=== PATIENT | male | born 1940 | race Caucasian/White ===

== ENCOUNTER 2019-02-06 23:18 | Inpatient (IN) | payer OTHER, BC ==
[~2019-02-06] VITALS: Ht 182.9 cm; Wt 93.2 kg
[2019-02-06 23:55] LABS: BASOPHIL % 0.3 % (0-2); PLATELET COUNT 229 x10^3mcL (130-400); RED CELL DISTRIBUTION WIDTH 13.5 % (11.5-14.5)
--- NOTE | 2019-02-07 | NUR ---
PATIENT WAS BROUGHT IN BY EMS WITH REPORT OF SLURRED SPEECH, UNABLE TO VOID , CONFUSION PER FAMILY. PATIENT WAS SEEN BY MD. BLOOD WAS DRAWN BY LAB.ATTEMPT TO DO BLADDER SCAN, BATTERY .
[2019-02-07 00:28] LABS: CALCIUM 9.6 mg/dL (8.5-10.1); CARBON DIOXIDE 25.2 mmol/L (21-32); CHLORIDE SERUM 102 mmol/L (98-107); CREATININE SERUM 1.2 mg/dL (0.7-1.3); GLUCOSE SERUM 163 mg/dL (74-106); POTASSIUM SERUM 4.3 mmol/L (3.5-5.1); SODIUM SERUM 138 mmol/L (136-145)
--- NOTE | 2019-02-07 00:30 | NUR ---
ON FIGUEROA INSERTEION. PATIENT LOWER ABDOMEN IS DISTENDED AND HARD.
[2019-02-07 00:33] LABS: ALBUMIN 3.9 g/dL (3.4-5.0); ALKALINE PHOSPHATASE 86 U/L (46-116); ALT/SGPT 53 U/L (16-63); AST/SGOT 40 U/L (15-37); TOTAL PROTEIN, SERUM 7.3 g/dL (6.4-8.2)
--- NOTE | 2019-02-07 00:42 | NUR ---
UNSUCCESSFUL ATTEMPTS X2 AT FIGUEROA CATH INSERTION WITH REGULAR FIGUEROA AND COUDE' FIGUEROA. WILL NOTIFY DR. BERNAL.
--- NOTE | 2019-02-07 00:43 | NUR ---
PT PROVIDED WITH URINAL IN CASE PT NEEDS TO URINATE.
--- NOTE | 2019-02-07 03:00 | NUR ---
NEUROLOGY MD SPOKE TO THE PATIENT ON THE TELECOM.
--- NOTE | 2019-02-07 03:30 | NUR ---
PATIENT HAS A INSULIN PUMP, WHICH HE MANAGE, THEY EXPRESS THE PUMP IS NOT WORKING. FAMILY MEMBER IS ON THE PHONE TO GET HELP.
--- NOTE | 2019-02-07 04:00 | NUR ---
PATIENT MEDICATED WITH PLAVIX. ATTEMPT TO INSERT 20 ANGIO CATH FOR THE CTA WAS UNSUCCESSFUL.
--- NOTE | 2019-02-07 04:17 | NUR ---
MOBILE SECURITY SPECIALIST AT THE BEDSIDE ATTEMPTING IV LOCK.
--- NOTE | 2019-02-07 04:46 | NUR ---
FAMILY EXPRESS CONSERN, PATIENT'S INSULIN PUMP NOT WORKING SINCE HE GOT HERE.BLOOD SUGAR CHECK PER FAMILY REQUEST, LISANDRA IS 112MG/DL
--- NOTE | 2019-02-07 04:49 | NUR ---
PATIENT WENT TO HAVE CTA DONE.
--- NOTE | 2019-02-07 05:11 | NUR ---
PATIENT RETURN FROM CT , CT/ANGIO IS DONE.
--- NOTE | 2019-02-07 05:46 | NUR ---
PATIEN IS SLEEPING, NO DISTRESS.
--- NOTE | 2019-02-07 06:49 | NUR ---
PATIENT WAS GIVEN PO, MD WANTS TO MAKE SURE HE HAS NO DIFFICULTY SWALLOWING. PATIENT WAS GIVEN WATED, HE IS SWALLOWING OK. PATIENT WAS GIVE PO MEDICATION EARLIER. NO DIFFICULTY NOTED WHEN SWALLOWING.
--- NOTE | 2019-02-07 07:06 | NUR ---
PATIENT IS RESTING, REPORT ENDORSED TO ROSA.
--- NOTE | 2019-02-07 07:06 | NUR ---
RECEIVED REPORT FROM CHIARA BROWNE.
--- NOTE | 2019-02-07 07:11 | NUR ---
PT SLEEPING ON ED GURNEY, RESPS E/U, NAD NOTED, ON FULL CM, EASILY ARROUSED, DENIES PAIN AT THIS TIME, SLOW SPEECH NOTED. CALL LIGHT WITHIN REACH, FAMILY AT BEDSIDE.
--- NOTE | 2019-02-07 07:29 | NUR ---
PT'S SON DANO, STS HE WOULD LIKE TO GO HOME "AND GET SOME REST", LEFT PERSONAL CELL FOR CALL BACK, .
--- NOTE | 2019-02-07 08:18 | NUR ---
REPORT GIVEN TO CHIARA OTTO TO ASSUME CARE OF PT.
[2019-02-07 08:28] LABS: PHOSPHOROUS 5.2 mg/dL (2.5-4.9)
--- NOTE | 2019-02-07 08:30 | NUR ---
RECEIVED PT FROM ED. ARRIVED VIA GUERNEY. PT AMBULATED TO BED, GAIT SLOW AND UNSTEADY. FALL PRECAUTIONS IN PLACE. RESPIRATIONS EQUAL AND UNLABORED ON RA. DENIES SOB AT THIS TIME. A/OX4. SLOW TO ANSWER. PT DENIES [place] OR DIZZINESS. PLACED TELE# 37 ON PT. PT SB WITH HR 49. PT DENIES CHEST PAIN/PRESSURE. PT DENIES ANY PAIN AT THIS TIME. PT STATES BEFORE ARRIVING TO ED HE WAS HAVING TROUBLE URINATING. FIGUEROA CATHETER IN PLACE DRAINING SEAN YELLOW URINE. PT STATES HIS STOMACH FEELS FIRM BUT DENIES ANY ABDOMINAL PAIN. WILL CONTINUE TO MONITOR. CALL LIGHT IN REACH. BED IN LOWEST POSITION.
--- NOTE | 2019-02-07 08:32 | NUR ---
CALLED DANO'S PERSONAL CELL, PT'S , FRANCO, ANSWERED INFORMED PT WAS ADMITTED VERBALIZED UNDERSTANDING. STS SHE WILL INFORM DANO.
[2019-02-07 08:33] LABS: CHOLESTEROL/HDL RATIO 2.2
[2019-02-07 08:35] LABS: T3 TOTAL 0.82 ng/mL
[2019-02-07 08:47] LABS: UA SPECIFIC GRAVITY <=1.005 (1.005-1.035); microscopic required? YES; urine erythrocyte 3+ (NEGATIVE)
[2019-02-07 08:59] LABS: FREE T4 1.12 ng/dL (0.76-1.46); FREE THYROXINE INDEX 2.4 ug/dL (1.4-4.5); T4(THYROXINE) 6.3 ug/dL (4.7-13.3)
--- NOTE | 2019-02-07 09:28 | NUR ---
SPOKE WITH PT DAUGHTER, PT DOCTOR WOULD LIKE TO SPEAK WITH RESIDENT WORKING ON PT CASE. WILL INFORM DR. CHOI.
--- NOTE | 2019-02-07 09:29 | NUR ---
PT SITTING UP IN BED. NO ACUTE RESP DISTRESS NOTED ON RA. DENIES SOB AT THIS TIME. IV SALINE LOCKED TO LFA. NO REDNESS OR SWELLING NOTED. PT DENIES ANY PAIN AT THIS TIME. PT REFUSED ATORVASTATIN. PT STATES THE MEDICATION MAKES HIS BODY HURT AND HE STOPPED TAKING IT YEARS AGO. WILL CONTINUE TO MONITOR. CALL LIGHT IN REACH. BED IN LOWEST POSITION.
[2019-02-07 10:44] VITALS: BP 127/46
--- NOTE | 2019-02-07 12:03 | NUR ---
PT SITTING UP IN BED. FAMILY AT BEDSIDE. PT IV CATHETER WAS REMOVED. CATHETER INTACT. NO REDNESS OR SWELLING NOTED. PT DENIES ANY PAIN AT THIS TIME. FIGUEROA CATHETER IN PLACE DRAINING SEAN YELLOW URINE. WILL CONTINUE TO MONITOR. CALL LIGHT IN REACH. BED IN LOWEST POSITION.
[2019-02-07 13:04] VITALS: BP 119/42
--- NOTE | 2019-02-07 13:59 | NUR ---
CHIEF SCIENTIFIC OFFICER AT BEDSIDE FOR ECHO
--- NOTE | 2019-02-07 15:11 | NUR ---
PT SITTING UP IN BED. NO ACUTE RESP DISTRESS NOTED ON RA. PT DENIES ANY PAIN AT THIS TIME. SON AT BEDSIDE. IV TO LAC FLUSHED WELL. NO REDNESS OR SWELLING NOTED. IV FLUIDS INFUSING ORDERED. SON PROVIDED LIST OF PT HOME MEDICATIONS WILL UPDATE MED REC. WILL CONTINUE TO MONITOR. CALL LIGHT IN REACH. BED IN LOWEST POSITION.
[2019-02-07] MEDS ORDERED: NIASPAN1000 MG PO (15:13)
[2019-02-07] MEDS ORDERED: PROBENECID500 MG PO (15:14)
[2019-02-07] MEDS ORDERED: PRAVACHOL20 MG PO (15:14)
[2019-02-07] MEDS ORDERED: COZAAR100 MG PO (15:14)
[2019-02-07] MEDS ORDERED: JARDIANCE10 MG PO (15:16)
[2019-02-07] MEDS ORDERED: HUMULIN R500 UNIT/1 MC (15:16)
[2019-02-07] MEDS ORDERED: ASPIRIN CHILDRE81 MG PO (15:18)
[2019-02-07] MEDS ORDERED: CENTRUM SILVER1 EAC2 PO (15:18)
[2019-02-07] MEDS ORDERED: LEADER MAGNESIU1 TAB PO (15:19)
[2019-02-07] MEDS ORDERED: VITAMIN C PUR1000 M1 PO (15:19)
--- NOTE | 2019-02-07 15:46 | NUR ---
CALLED TO (RESIDENT) AND MADE HIM AWARE OF 'S ORDER COVERAGE ON SLIDING SCALE AND PT IS CURRENTLY USING HIS INSULIN PUMP WHAT WAS ORDERED BY THAT IT'S OKAY FOR PT TO CONTINUE HIS INSULIN PUMP. SAYS, HE WILL ORDER TO DISCONTINUE THE SLIDING SCALE SINCE PT IS ALREADY USING HIS INSULIN PUMP ORDERED. CLARITA GUADARRAMA ASSIGNED TO THIS PT MADE AWARE OF ABOVE.
--- NOTE | 2019-02-07 16:18 | NUR ---
ASSISTED PT TO BATHROOM. PT GAIT IS SLOW SHUFFLING. ASKED PT IF HE WOULD FEEL MORE COMFORTABLE USING BEDSIDE COMMODE. PT STATES I WILL TRY IT.
[2019-02-07 16:19] VITALS: BP 110/42
--- NOTE | 2019-02-07 17:40 | NUR ---
PT SITTING UP IN BED. NO ACUTE RESP DISTRESS NOTED ON RA. PT DENIES ANY PAIN AT THIS TIME. BLOOD SUGAR CHECKED WAS 45, RECHECKED WAS 48. PT PROVIDED ORANGE JUICE WITH SUGAR AND PUDDING. STARTED D10 BOLUS PER PROTOCOL. IV PATENT AND INFUSING. NO REDNESS OR SWELLING NOTED. FIGUEROA CARE PROVIDED. WILL REASSESS BLOOD SUGAR. CALL LIGHT IN REACH. BED IN LOWEST POSITION.
--- NOTE | 2019-02-07 17:59 | NUR ---
PT BLOOD SUGAR WAS 151. SPOKE WITH DR. CHOI MADE AWARE.
--- NOTE | 2019-02-07 18:38 | NUR ---
PT SITTING UP AT BEDSIDE. NO ACUTE RESP DISTRESS NOTED ON RA. PT DENIES ANY PAIN AT THIS TIME. IV D10 PATENT AND INFUSING. TELE#37. FIGUEROA CATHETER IN PLACE DRAINAGE YELLOW URINE. WILL ENDORSE TO FUNCTIONAL ANALYST RN. CALL LIGHT IN REACH. BED IN LOWEST POSITION.
--- NOTE | 2019-02-07 19:08 | NUR ---
RECEIVED REPORT FROM CLARITA GUADARRAMA. ASSUMING ALL CARE
--- NOTE | 2019-02-07 19:45 | NUR ---
RECEIVED PT LAYING IN BED. PT IS A/OX4. SPEECH IS SLOW. GCS=15. DENIES ANY P[place]/DIZZINESS. PERRLA NOTED BILAT, 3 MM. HAND LEAD REFINERY SUPERVISOR STRONG EQUAL BILAT. EENT FREE OF DISCHARGE. ORAL MUCOSA PINK AND MOIST. NO JVD NOTED. BREATHING IS E/U ON RA. DENIES ANY RESP DISTRESS. LUNGS SOUND CLEAR BILAT. SYMMETRICAL CHEST EXPANSION NOTED. PT ON TELE#37 READING NSR. S1/S2 HEART SOUNDS AUSCULTATED. CHEST WALL EQUAL AND SYMMETRICAL. DENIES ANY CP. HR 70. PALPABLE PULSES X4 EXTREMITIES. SKIN IS WARM AND DRY. + 1 PITTING EDEMA NOTED TO BLE. SKIN IS WARM AND DRY. LAC IV REMAINS SALINE LOCKED. GENERALIZED WEAKNESS. PT REQUIRES ASSISTANCE TO AMBULATE. PT ABLE TO REPOSIION SELF INDEPENDENTLY. PT ON CCHO DIET. DENIES ANY N/V. ABD IS ROUND/NONTENDER TO PALPATION. BOWEL SOUNDS ACTIVE X4 QUADRANTS. FIGUEROA IS INTACT/SECURED, DRAINING VIA GRAVITY WITH YELLOW COLORED URINE. NO SCROTAL EDEMA NOTED. SKIN IS INTACT. PT IS CALM AND COOPERATIVE. BED IN LOW POSITION. CALL LIGHT IN REACH. WILL CONT TO MONITOR
[2019-02-07 20:34] VITALS: BP 119/45
--- NOTE | 2019-02-07 23:17 | NUR ---
PT IS SLEEPING, EASILY AROUSABLE. RISE AND FALL OF CHEST NOTED. BREATHING IS E/U ON RA. NO S/S OF ACUTE DISTRESS NOTED. WILL CONT TO MONITOR
--- NOTE | 2019-02-08 02:18 | NUR ---
PT IS SLEEPING, EASILY AROUSABLE. RISE AND FALL OF CHEST NOTED. BREATHING IS E/U ON RA. NO S/S OF ACUTE DISTRESS NOTED. WILL CONT TO MONITOR
--- NOTE | 2019-02-08 05:14 | NUR ---
BLOOD SUGAR NOTED TO BE 41. BLOOD SUGAR RECHECKED AND WAS 42. PT DENIES ANY HYPOGLYCEMIA SYMPTOMS. D10 INFUSION INITIATED AT THIS TIME @ 250 ML/HR PER EMAR. WILL CONT TO MONITOR
[2019-02-08 05:35] VITALS: BP 112/45
--- NOTE | 2019-02-08 06:06 | NUR ---
PT TURNED OFF INSULIN PUMP
[2019-02-08 06:30] LABS: CALCIUM 9.1 mg/dL (8.5-10.1); CARBON DIOXIDE 25.9 mmol/L (21-32); CHLORIDE SERUM 111 mmol/L (98-107); CREATININE SERUM 0.7 mg/dL (0.7-1.3); GLUCOSE SERUM 103 mg/dL (74-106); MAGNESIUM 1.9 mg/dL (1.8-2.4); PHOSPHOROUS 3.8 mg/dL (2.5-4.9); SODIUM SERUM 148 mmol/L (136-145)
--- NOTE | 2019-02-08 06:31 | NUR ---
BLOOD SUGAR RECHECKED POST D10 ADMINISTRATION. BLOOD SUGAR NOTED TO BE 147. WILL CONT TO MONITOR
[2019-02-08 06:53] LABS: BASOPHIL % 0.3 % (0-2); PLATELET COUNT 191 x10^3mcL (130-400); RED CELL DISTRIBUTION WIDTH 13.9 % (11.5-14.5)
--- NOTE | 2019-02-08 07:10 | NUR ---
REPORT GIVEN TO CLARITA GUADARRAMA FOR CONTINUITY OF CARE. ALL QUESTIONS/CONCERNS ADDRESSED AT THIS TIME. ENDORSING ALL CARE
--- NOTE | 2019-02-08 07:40 | NUR ---
RECEIVED PT FROM CHURCH SUPERVISOR RN. Christopher/USAMA. TELE#37. DENIES CHEST PAIN/PRESSURE. RESPIRATIONS EQUAL AND UNLABORED ON RA. DENIES SOB. IV SALINE LOCKED TO LAC. NO REDNESS OR SWELLING NOTED. PT DENIES ANY PAIN AT THIS TIME. FIGUEROA CATHETER IN PLACE DRAINING YELLOW URINE. WILL CONTINUE TO MONITOR. CALL LIGHT IN REACH. BED IN LOWEST POSITION.
[2019-02-08 07:49] VITALS: BP 121/44
--- NOTE | 2019-02-08 09:04 | NUR ---
PT SITTING UP IN BED. NO ACUTE RESP DISTRESS NOTED ON RA. PT DENIES ANY PAIN AT THIS TIME. FIGUEROA CATHETER IN PLACE DRAINING YELLOW URINE. PT STATES HE RARE FEELS THE URGE TO VOID. GIVEN PO MEDS. TOLERATED WELL. PT FORGETFUL. PT BELIEVES HES BEEN IN THE HOSPITAL FOR 3 NIGHTS. PT EAGER TO GO HOME. IV SALINE LOCKED TO LAC. NO REDNESS OR SWELLING NOTED. WILL CONTINUE TO MONITOR. CALL LIGHT IN REACH. BED IN LOWEST POSITION.
--- NOTE | 2019-02-08 10:14 | NUR ---
MIRIAM TRAINING INITIATED PER DR. CHOI. FIGUEROA CATHETER CLAMPED, INSTRUCTED PT TO CALL WHEN FEELING THE URGE TO VOID. PT VERBALIZED UNDERSTANDING. WILL CONTINUE TO MONITOR.
--- NOTE | 2019-02-08 11:41 | NUR ---
PT SITTING UP IN BED. BLOOD SUGAR WAS CHECKED WAS 39, RECHECKED WAS 40. PT INSTRUCTED TO STOP INSULIN PUMP. PT STOPPED. PROVIDED PT WITH PUDDING AND CRACKERS. PROTOCOL INITIATED D10 INFUSING TO LAC. NO REDNESS OR SWELLING NOTED. WILL RECHECK BLOOD SUGAR.
--- NOTE | 2019-02-08 12:21 | NUR ---
PT SITTING UP IN BED. BLOOD SUGAR CHECKED WAS 143. IV D10 INFUSING ORDERED. NO REDNESS OR SWELLING NOTED. PT STATES HE STILL DOES NOT FEEL THE URGE TO VOID. WILL CONTINUE TO MONITOR. CALL LIGHT IN REACH. BED IN LOWEST POSITION.
[2019-02-08 12:42] VITALS: BP 123/35
--- NOTE | 2019-02-08 13:21 | NUR ---
PT SITTING UP IN BED. PT STATES HE FEELS HE MAY HAVE THE URGE TO VOID BUT IS NOT SURE. PT REEDUCATED ON IMPORTANCE OF NOTIFYING IF HE FEELS A STRONG URGE TO URINATE. PT INFORMED WE WANT TO MAKE SURE HE CAN VOID ON HIS OWN BEFORE SENDING HIM. PT VERBALIZED UNDERSTANDING. WILL CONTINUE TO MONITOR. CALL LIGHT IN REACH. BED IN LOWEST POSITION.
--- NOTE | 2019-02-08 14:00 | NUR ---
PT STATES HE FEELS THE FELT THE URGE TO VOID. PT USED BEDSIDE COMMODE. WHEN PT USED BEDSIDE COMMODE PT VOIDED SMALL AMOUNTS OF BLOODY URINE. FIGUEROA CATHETER WAS UNCLAMPED. EMPTIED OUT 850 ML OF YELLOW URINE. WILL CONTINUE TO MONITOR.
--- NOTE | 2019-02-08 14:07 | NUR ---
SPOKE WITH DR. CHOI UPDATED HER ON PT FIGUEROA DRAINING. PER DR. CHOI SHE WILL HAVE PT DISCHARGED HOME WITH FIGUEROA CATHETER. SHE WILL SPEAK WITH PT AND FAMILY TO ENCOURAGE PT TO FOLLOW UP WITH PCP TO GET A REFERRAL TO UROLOGIST.
--- NOTE | 2019-02-08 14:15 | NUR ---
DR. CHOI AT BEDSIDE SPEAKING WITH FAMILY. PER DR. CHOI WILL KEEP PT ONE MORE NIGHT AND TRY TO CONTINUE WITH BLADDER TRAINING.
--- NOTE | 2019-02-08 14:20 | NUR ---
SPOKE WITH DR. CHOI REGARDING PT SUGARS BEING LOW. PER DR. CHOI WANT PT TO TURN INSULIN PUMP OFF DURING HOSPITAL STAY AND UTILIZE INSULIN SLIDING SCALE. SPOKE WITH PT AND INFORMED HIM WE WOULD LIKE HIM TO TURN OFF HIS PUMP DURING HOSPITAL STAY TO AND WE WILL MAINTAIN HIS BLOOD SUGAR BY USING SLIDING SCALE. PT VERBALIZED UNDERSTANDING AND STATES HE WILL KEEP HIS PUMP OFF.
--- NOTE | 2019-02-08 16:27 | NUR ---
SPOKE WITH DR. CHOI REGARDING PT HOME MEDICATION FOR GOUT. PER DR. CHOI SHE WILL CONTINUE MEDICATION.
[2019-02-08 16:58] VITALS: BP 118/42
--- NOTE | 2019-02-08 18:50 | NUR ---
PT IN BED RESTING. NO ACUTE RESP DISTRESS NOTED ON RA. TELE#37. PT DENIES ANY PAIN AT THIS TIME. FIGUEROA CATHETER IN PLACE DRAINING CLEAR YELLOW URINE. WILL ENDORSE TO WELDER APPRENTICE COMBINATION RN. CALL LIGHT IN REACH. BED IN LOWEST POSITION.
--- NOTE | 2019-02-08 19:50 | NUR ---
PT A/O X4 LAYING IN BED. PT BREATHING IS EVEN AND UNLABORED ON RA.PT BS IS 125 , NO COVERAGE NEEDED. PT IS ON TELE # 37 WITH NSR HR AT 65. PT LUNG SOUNDS WERE CLEAR BILATERALLY. PT HAS PALPABLE PULSES AND BLE EDEMA NOTED. PT BOWEL SOUNDS ACTIVE AND LAST BM 02/08, ABDOMEN IS DISTENDED AND SOFT. PT HAS FIGUEROA CATHEYER IN , WITH URINE DRAINING, URINE YELLOW AND CLEAR, UO 800 ML. PT HAS GENERAL WEAKNESS, NEEDS ASSISTANCE OUT OF BED. PT IV ON LAC S/L. PT DENIES ANY PAIN, CHEST PAIN OR SOB AT THIS TIME. WILL CONTINUE TO MONITOR.
[2019-02-08 20:58] VITALS: BP 122/49
--- NOTE | 2019-02-09 01:10 | NUR ---
PT IS ASLEEP. BREATHING IS UNEVEN AND UNLABORED. NO RESP DISTRESS NOTED. PT EASILY RESPONDS TO VERBAL COMMANDS. UO OF 2150 ML URINE YELLOW AND CLEAR. PT DENIES ANY PAIN AT THIS TIME.
[2019-02-09 05:40] VITALS: BP 128/48
--- NOTE | 2019-02-09 05:52 | NUR ---
PT SLEPT THROUGH THE NIGHT. NO RESP DISTRESS NOTED. PT BREATHING WAS EVENA ND UNLABORED. PT DENIES ANY PAIN OR SOB AT THIS TIME. PT IS ON TELE #37 WITH NSR. PT HAS FIGUEROA, MORNING CARE GIVEN. UO IS YELLOW AND CLEAR. PT MORNING BS 143 NO INSULIN COVERAGE NEEDED. PT HAS IV TO LAC CDI. PT ABDOMEN SOFT AND DISTENDED. PT IS COOPERATIVE WITH NURSING CARE.
[2019-02-09 06:33] LABS: BASOPHIL % 0.4 % (0-2); PLATELET COUNT 194 x10^3mcL (130-400); RED CELL DISTRIBUTION WIDTH 13.6 % (11.5-14.5)
[2019-02-09 07:10] LABS: CALCIUM 9.5 mg/dL (8.5-10.1); CARBON DIOXIDE 23.8 mmol/L (21-32); CHLORIDE SERUM 107 mmol/L (98-107); CREATININE SERUM 0.9 mg/dL (0.7-1.3); GLUCOSE SERUM 141 mg/dL (74-106); MAGNESIUM 1.8 mg/dL (1.8-2.4); PHOSPHOROUS 3.1 mg/dL (2.5-4.9); POTASSIUM SERUM 4.4 mmol/L (3.5-5.1); SODIUM SERUM 143 mmol/L (136-145)
--- NOTE | 2019-02-09 07:17 | NUR ---
PT HAND OFF REPORT GIVEN TO NURSE CARVAJAL. ALL QUESTIONS AND CONCERN ANSWERED.
--- NOTE | 2019-02-09 07:25 | NUR ---
RECEIVED PT. IN BED A/A/O X3. NO SOB, NO N/V NOTED. PT. DENIES ANY PAIN AT THIS TIME. PT. DENIES NUMBNESS TO TO ANY BODY PART. IV SITE NOTED TO L AC. SCD TO BLE MAINTAINED. F/C DRAINING SEAN URINE. BED IN LOW POS., CALL LIGHT WITHIN REACH. SIDE RAILS UP X3.
[2019-02-09 08:50] VITALS: BP 123/50
[2019-02-09] MEDS ORDERED: TAMSULOSIN HCL0.4 MG PO (10:24)
[2019-02-09] MEDS ORDERED: PROS5 PO (12:17)
[2019-02-09 13:14] VITALS: BP 120/54
--- NOTE | 2019-02-09 16:30 | NUR ---
D/C HOME INSTRUCTIONS GIVEN TO PT. AND PT.'S SON (KEVIN) WHO BOTH VERBALIZED UNDERSTANDING OF INSTRUCTIONS. BOTH PT. AND PT.'S SON WERE INSTRUCTED ON HOW TO CARE FOR AND HOW TO EMPTY THE F/C PRIOR TO DISCHARGE. PT.'S SON (KEVIN) SHOWED UNDERSTANDING THROUGH RETURN DEMONSTRATION. IV H/L TO L AC REMOVED. PRESCRIPTIONS GIVEN. TELE. MONITOR #[id number] REMOVED AND RETURNED TO TELE. MONITOR STATION.
--- NOTE | 2019-02-09 16:45 | NUR ---
PT. IS BEING DISCHARGED IN STABLE CONDITION VIA WHEELCHAIR. ALL BELONGINGS SENT HOME WITH PT. UPON DISCHARGE. ACCOMPANIED BY HIS SON KEVIN AT TIME OF DISCHARGE.
== END 2019-02-09 16:45 | disposition home or self-care (01) | DRG 70 ==
LOC: ED 23:18 → DU 02-07 07:47
PROVIDERS: Emergency Medicine; ADMIT Internal Medicine
DX: I67.2 Cerebral atherosclerosis (principal); N17.0 Acute kidney failure with tubular necrosis; M62.82 Rhabdomyolysis; R47.1 Dysarthria and anarthria; M1A.9XX0 Chronic gout, unspecified, without tophus (tophi); K59.00 Constipation, unspecified; E11.9 Type 2 diabetes mellitus without complications; I10 Essential (primary) hypertension; N40.1 Benign prostatic hyperplasia with lower urinary tract symptoms; R33.8 Other retention of urine; D72.829 Elevated white blood cell count, unspecified; Z96.41 Presence of insulin pump (external) (internal); Z79.84 Long term (current) use of oral hypoglycemic drugs
CPT/HCPCS: 82962; 84439; B4164; G0378; J2270; J7030; Q9967